=== PATIENT | male | born 1970 | race Caucasian/White ===

== ENCOUNTER → 2022-04-12 | Emergency (ER) | payer OTHER ==
[~2022-04-12] VITALS: Ht 182.9 cm; Wt 93.2 kg
[~2022-04-12] MED LIST: ALBU6.7H9 INH; BUDE180A INH; NIRM1TAB PO; PRED20TA PO; acetaminophen 325mg tablet PO ONE
[2022-04-12 12:40] VITALS: BP 132/100
== END | disposition home or self-care (01) ==
LOC: ER 12:31
DX: U07.1 COVID-19 (principal); R51.9 Headache, unspecified; R42 Dizziness and giddiness; R05.9 Cough, unspecified; K21.9 Gastro-esophageal reflux disease without esophagitis; Z79.899 Other long term (current) drug therapy
CPT/HCPCS: 87635; 99283; C9803